=== PATIENT | female | born 1950 | race Caucasian/White ===

== ENCOUNTER 2025-03-19 07:56 | Day surgery (SDC) | payer MEDICARE ==
[2025-03-19] MEDS ORDERED: Sodium Chloride 0.9% 10 ML Syringe FLUSH PRN (08:00)
[2025-03-19] MEDS ORDERED: Midazolam 1 MG/ML 2 ML SDV ONE (09:09)
[2025-03-19] MEDS ORDERED: Propofol 200 MG/20 ML SDV ONE (09:09)
== END 2025-03-19 10:59 | disposition home or self-care (01) ==
LOC: KA.SDS 07:56
PROVIDERS: ATTEND Surgery
DX: Z12.11 Encounter for screening for malignant neoplasm of colon (principal); D12.8 Benign neoplasm of rectum; E11.9 Type 2 diabetes mellitus without complications; E78.00 Pure hypercholesterolemia, unspecified; I10 Essential (primary) hypertension; E66.9 Obesity, unspecified; Z68.38 Body mass index [BMI] 38.0-38.9, adult; Z79.84 Long term (current) use of oral hypoglycemic drugs; Z79.899 Other long term (current) drug therapy
CPT/HCPCS: 00811; 82947; 88305; 99100; J2250; J2704; J7030